=== PATIENT | male | born 1955 | race Caucasian/White ===

== ENCOUNTER 2024-03-09 13:04 | Emergency (ER) | payer MEDICARE, SELFPAY ==
[2024-03-09 13:07] VITALS: BP 147/73; PULSE 74; RESP 16; TEMP 36.5; O2SAT 94; BMI 26.6
--- NOTE | 2024-03-09 13:13 | ED_ITS ---
HPI - General Adult General Chief complaint: Back Injury/Pain Stated complaint: Lower back/L leg pain Time Seen by Provider: 03/09/24 13:13 History of Present Illness HPI narrative: atient here with back pain that is left side and radiates down the left leg. Had a CT in October that had degenerative disc disease. Pain has not been relieved with chiropractor care, has appt with primary on 03/20/24 but can 't wait with pain until then . Hot showers help, has tried pain patches and Tylenol which help a little. 69-year-old man presenting to the emergency department with complaint of intense radicular pain radiating down the left leg. It deep and painful ache. Has been going on in some form for at least for 4 months. Imaging has noted degenerative disc disease. Actually has appointment in early March with primary care but pain has just escalated again. Trying lidocaine patches and acetaminophen. Most helped actually by hot showers. Feeling a little bit better at the moment after having just taken a hot shower. Escalated again a few days ago. Related Data Home Medications ?Medication ?Instructions ?Recorded ?Confirmed amlodipine 10 mg tablet 10 mg PO DAILY 03/09/24 03/09/24 carvedilol 6.25 mg tablet 6.25 mg PO BID 03/09/24 03/09/24 losartan 100 mg tablet 100 mg PO DAILY 03/09/24 03/09/24 rosuvastatin 40 mg tablet 40 mg PO DAILY 03/09/24 03/09/24 Previous Rx's ?Medication ?Instructions ?Recorded gabapentin 300 mg capsule 300 mg PO TID #45 caps 03/09/24 hydrocodone 5 mg-acetaminophen 325 1 - 2 tab PO Q4-6H PRN pain #12 03/09/24 mg tablet tabs prednisone 20 mg tablet 20 mg PO DAILY #14 tabs 03/09/24 Allergies Allergy/AdvReac Type Severity Reaction Status Date / Time No Known Drug Allergies Allergy Verified 03/09/24 13:11 Review of Systems Status of ROS: Reports: 6 or more systems reviewed and unremarkable except as noted in History and below PFSH PFS Social History Smoking Status: Current every day smoker How often do you have a drink containing alcohol: never AUDIT-C Alcohol total score: 0 Non-prescribed substance use: denies use service: No Exam Narrative: Exam Narrative: Clearly uncomfortable. Calm. Positive straight leg raise on the left. No apparent sensory loss. Has good muscle tone. No swelling or erythema about the back. Not really with reproducible pain to palpation of the back nor buttock. Const: Vital Signs, click to edit/add: Vital Signs - 24 hr 03/09/24 13:07 Temperature 97.7 F Pulse Rate [Pulse Oximeter] 74 Respiratory Rate 16 Blood Pressure [Ri ght Upper Arm] 147/73 H Pulse Oximetry 94 Oxygen Delivery Me thod Room Air Documenting provider has reviewed patient's vital signs: yes Course Vital Signs Vital signs: Initial Vital Signs Temperature 97.7 F 03/09/24 13:07 Temperature Source Temporal Artery Scan 03/09/24 13:07 Pulse Rate 74 03/09/24 13:07 Pulse Rhythm Regular 03/09/24 13:07 Respiratory Rate 16 03/09/24 13:07 Blood Pressure 147/73 H 03/09/24 13:07 Blood Pressure Mean 97 03/09/24 13:07 Blood Pressure Position Sitting 03/09/24 13:07 Pulse Oximetry 94 03/09/24 13:07 Oxygen Delivery Method Room Air 03/09/24 13:07 Vital Signs Temperature 97.7 F 03/09/24 13:07 Pulse Rate 74 03/09/24 13:07 Respiratory Rate 16 03/09/24 13:07 Blood Pressure 147/73 H 03/09/24 13:07 Pulse Oximetry 94 03/09/24 13:07 Oxygen Delivery Method Room Air 03/09/24 13:07 Temperature 97.7 F 03/09/24 13:07 Pulse Rate 74 03/09/24 13:07 Respiratory Rate 16 03/09/24 13:07 Blood Pressure 147/73 H 03/09/24 13:07 Pulse Oximetry 94 03/09/24 13:07 Oxygen Delivery Method Room Air 03/09/24 13:07 Medical Decision Making MDM Narrative Medical decision making narrative: Distribution as described would suggest lower lumbar impingement. Another 10 days until follow-up with primary. MRI as next step in imaging/evaluation is not available here today. Does not have secondary signs/red flags. I think would benefit from a course of anti-inflammatory and neuro modulating medication. See patient discharge plan for further discussion Discharge Plan Discharge Clinical Impression: Lumbar radiculopathy Patient Disposition: Home, Self-Care Condition: Stable Instructions: Back Pain (ED) Additional Instructions: Prescribing course of prednisone and continue gabapentin along with, if needed, [place]. If after 5 days not getting adequate relief of discomfort, can increase gabapentin to 600 mg 3 times daily. See handout on some stretches/exercises you might begin. Can take up to 800 mg of ibuprofen or up to 1000 mg of acetaminophen per dose. Alternative to the ibuprofen might be up to 500 mg of naproxen 2 times daily. Please follow-up as planned with primary care provider for further evaluation and plan. Prescriptions: New gabapentin 300 mg capsule 300 mg PO TID Qty: 45 0RF prednisone 20 mg tablet 20 mg PO DAILY Qty: 14 0RF Rx Instructions: Take 60 mg p.o. daily for 2 days then 40 mg p.o. daily for 4 days. hydrocodone-acetaminophen 5-325 mg tablet 1 - 2 tab PO Q4-6H PRN (Reason: pain) Qty: 12 0RF No Action carvedilol 6.25 mg tablet 6.25 mg PO BID amlodipine 10 mg tablet 10 mg PO DAILY losartan 100 mg tablet 100 mg PO DAILY rosuvastatin 40 mg tablet 40 mg PO DAILY Stand Alone Forms: [employer] Info Instructions
== END 2024-03-09 13:56 | disposition home or self-care (01) ==
LOC: ED 13:40
PROVIDERS: Emergency Provider Family Medicine; PCP Family Medicine
DX: M54.16 Radiculopathy, lumbar region (principal)
CPT/HCPCS: 99283; 99284